=== PATIENT | female | born 1970 | race Caucasian/White ===

== ENCOUNTER → 2020-07-06 | Outpatient (CLI) | payer BC ==
--- NOTE | 2020-07-06 10:07 | KCIC ---
EXAM: Bilateral shoulders, 3 views. HISTORY: Pain. COMPARISON: None. FINDINGS: 3 views of both shoulders are obtained. There is no acute fracture, dislocation or subluxat ion. There is degenerative subchondral sclerosis, spurring and subchondral cyst formation involving t he right glenoid. There is a chronic healed right mid clavicle fracture. IMPRESSION: 1. Mild right glenohumeral osteoarthritis. 2. No acute osseous finding. Electronically signed by: Sandra Starkey MD (07/06/2020 10:04 AM) [id number]
== END ==
LOC: KCIC 09:25
PROVIDERS: ATTEND Nurse Practitioner Gerontology
DX: M19.012 Primary osteoarthritis, left shoulder (principal); M19.011 Primary osteoarthritis, right shoulder